=== PATIENT | female | born 2000 | race American Indian/Alaskan Native ===

== ENCOUNTER 2021-02-22 04:13 | Emergency (ER) | payer SELFPAY ==
--- NOTE | 2021-02-22 05:42 | XRay Report ---
Left forearm 2 views INDICATION: Pain FINDINGS: No acute fracture or periosteal reaction. No soft tissue abnormality. Right RIBS 3 views INDICATION: Pain FINDINGS: Lungs clear heart size appears normal. No pneumothorax. No displaced rib fracture. Left shoulder 3 views INDICATION: Pain FINDINGS: Glenohumeral joint appears normal. No acute fracture or dislocation. Signer Name: Emerson Hancock MD Signed: 02/22/2021 5:37 AM Workstation Name: [id number]
[2021-02-22 06:59] LABS: HCG Qualitative,Urine Negative (Negative)
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
[2021-02-22] MEDS ORDERED: IBUPROFEN 600 MG TAB PO ONE (08:10)
[2021-02-22 08:39] VITALS: BP 118/76
== END 2021-02-22 08:30 | disposition home or self-care (01) ==
LOC: ED 04:13
DX: T07.XXXA Unspecified multiple injuries, initial encounter (principal); Z79.899 Other long term (current) drug therapy; V89.9XXA Person injured in unspecified vehicle accident, initial encounter; Y92.410 Unspecified street and highway as the place of occurrence of the external cause; Y93.89 Activity, other specified; Y99.8 Other external cause status
CPT/HCPCS: 81025

== ENCOUNTER 2021-03-10 17:01 | Emergency (ER) | payer SELFPAY ==
[2021-03-10 19:39] VITALS: BP 127/60
--- NOTE | 2021-03-10 19:42 | Event Note ---
ED Screening Note ED Screening Note: Patient presents for abdominal pain, nausea, vomiting, diarrhea that began 2 days ago She denies any sick contacts or recent travel She denies any recent antibiotics She denies any water from a different source or camping She denies any spoiled or different foods This initial assessment/diagnostic orders/clinical plan/treatment(s) is/are subject to change based on patients health status, clinical progression and re- assessment by fellow clinical providers in the ED. Further treatment and workup at subsequent clinical providers discretion. Patient/guardian urged not to elope from the ED as their condition may be serious if not clinically assessed and managed. Initial orders include: Labs, urine
[2021-03-10 20:14] LABS: Basophils % (Auto) 0.4 % (0.0-1.8); Eosinophils # (Auto) 0.1 K/mm3 (0.0-0.4); Eosinophils % (Auto) 1.4 % (0.0-4.3); Hematocrit 43.1 % (30.3-42.9); Hemoglobin 13.9 gm/dl (10.1-14.3); Lymphocytes # (Auto) 2.3 K/mm3 (1.2-5.4); Lymphocytes % (Auto) 31.5 % (13.4-35.0); Mean Corpuscular HGB Conc 32 % (30-34); Mean Corpuscular Volume 83 fl (79-97); Monocytes # (Auto) 0.4 K/mm3 (0.0-0.8); Platelet Count 291 K/mm3 (140-440); Red Cell Distribution Width 13.5 % (13.2-15.2)
[2021-03-10 20:26] LABS: Mucus,Urine FEW /HPF
[2021-03-10 20:27] LABS: Bilirubin,Urine NEG (Negative); Blood,Urine NEG (Negative); Color,Urine Yellow (Yellow); Protein,Urine <15 mg/dL mg/dL (Negative); Urobilinogen,Urine < 2.0 mg/dL (<2.0)
[2021-03-10] MEDS ORDERED: SODIUM CHLORIDE 0.9% 1000 ML 1,000 ML IV ONE (20:30)
[2021-03-10] MEDS ORDERED: METOCLOPRAMIDE 10 MG/2 ML INJ IV STA (20:30)
[2021-03-10] MEDS ORDERED: diphenhydrAMINE 50 MG/ML VIAL IV STA (20:30)
[2021-03-10] MEDS ORDERED: ONDANSETRON 4 MG/2 ML INJ IV STA (20:30)
[2021-03-10 20:32] LABS: Alanine Aminotransferase 10 units/L (7-56); Albumin 4.9 g/dL (3.9-5); Blood Urea Nitrogen 7 mg/dL (7-17); Calcium 9.7 mg/dL (8.4-10.2); Hemolysis Index 142
[2021-03-10 20:34] LABS: BUN/Creatinine Ratio 14
== END 2021-03-10 21:00 | disposition left against medical advice (07) ==
LOC: ED 17:01
DX: R11.2 Nausea with vomiting, unspecified (principal); R19.7 Diarrhea, unspecified; R53.1 Weakness; Z53.21 Procedure and treatment not carried out due to patient leaving prior to being seen by health care provider
CPT/HCPCS: 36415; 80053; 81001; 83690; 84703; 85025; 87086; J1200; J2405; J2765; J7030